=== PATIENT | male | born 2000 | race Caucasian/White ===

== ENCOUNTER 2020-10-18 22:16 | Observation (INO) | payer BC ==
[~2020-10-18] VITALS: Ht 182.9 cm; Wt 104.3 kg
[2020-10-18 22:34] LABS: BASOPHILS ABSOLUTE AUTO 0.07 K/mm3 (0.00-0.23); BASOPHILS PERCENT AUTO 1 % (0-2); EOSINOPHILS ABSOLUTE AUTO 0.15 K/mm3 (0.00-0.68); EOSINOPHILS PERCENT AUTO 2 % (0-6); Hematocrit 46.1 % (37.0-53.0); IMMATURE GRAN ABSOLUTE AUTO 0.03 K/mm3 (0.00-0.10); IMMATURE GRAN PERCENT AUTO 0 % (0-1); LYMPHOCYTES ABSOLUTE AUTO 2.67 K/mm3 (0.84-5.20); LYMPHOCYTES PERCENT AUTO 27 % (21-46); MONOCYTES PERCENT AUTO 7 % (4-13); Mean Corpuscular HGB 29.7 pg (26.0-34.0); Mean Corpuscular HGB Conc 34.7 g/dL (31.5-36.5); Mean Corpuscular Volume 86 fL (80-100); Mean Platelet Volume 11.1 fL (9.1-12.4); NEUTROPHILS PERCENT AUTO 63 % (41-73); Platelet Count 282 K/mm3 (150-400); RDW Coefficient Variation 12.5 % (11.7-14.2); RDW Standard Deviation 38.6 fL (35.1-46.3); Red Blood Cell Count 5.39 M/mm3 (4.30-5.90); White Blood Cell Count 9.82 K/mm3 (4.00-11.30)
[2020-10-18 22:50] LABS: Alanine Aminotransfer (ALT/SGP 25 U/L (12-78); Albumin, Blood 4.5 g/dL (3.4-5.0); Albumin/Globulin Ratio 1.3 (0.8-1.8); Alk Phos 75 U/L (50-136); Anion Gap 7 mmol/L (6-16); Aspartate Aminotrans (AST/SGOT 11 U/L (12-37); Bilirubin, Total 0.6 mg/dL (0.1-1.0); Blood Urea Nitrogen 10 mg/dL (8-24); Bun/Creatinine Ratio 11.2 (12.0-20.0); CO2, Blood 29 mmol/L (21-32); Calcium, Blood 9.8 mg/dL (8.5-10.1); Chloride, Blood 105 mmol/L (98-108); Creatinine, Blood 0.89 mg/dL (0.60-1.20); Ethanol (Alcohol), Blood, Med <3 mg/dL; Globulin, Blood 3.5 g/dL (2.2-4.0); Glomerular Filtration Rate >60 (60-); Glucose, Blood 109 mg/dL (70-99); Potassium, Blood 3.1 mmol/L (3.5-5.5); Sodium, Blood 141 mmol/L (136-145)
[2020-10-19 00:07] LABS: U Amphetamine Screen Not Detected; U Barbituate Screen Not Detected; U Benzodiazapine Screen Not Detected; U Cocaine Screen Not Detected; U Methadone Screen Not Detected; U Methamphetamine Screen Not Detected; U Opiates Screen Not Detected; U Phencyclidine Screen Not Detected
[2020-10-19 00:08] LABS: U Buprenorphine Screen Not Detected; U Cannabinoids Screen DETECTED; U Oxycodone Screen Not Detected; U Propoxyphene Screen Not Detected
[2020-10-19 01:44] LABS: Influenza A, PCR Negative (NEGATIVE); Influenza B, PCR Negative (NEGATIVE); Resp Syncytial Virus, PCR Negative (NEGATIVE); SARS-Cov-2 (COVID-19) PCR, MMC Negative (NEGATIVE)
--- NOTE | 2020-10-19 05:17 | NUR ---
SHIFT SUMMARY PT NEW ADMIT THIS AM. [id number]. NPO. PT REPORTING GENERALIZED DISCOMFORT WITH A HEADACHE SINCE TREATMENT IN HOSPITAL, DENIES PAIN MEDS. GENERALIZED ABRASIONS TO BUE + CHEST. DENIES N/T ALL EXTREMITIES. ABLE TO MOVE ALL EXTREMITIES EQUALLY. SPLINT TO RIGHT HAND/WRIST. PT CURRENTLY RESTING IN BED WITH GIRLFRIEND RESTING AT BEDSIDE, CALL LIGHT IN REACH.
--- NOTE | 2020-10-19 07:30 | NUR ---
ASSUMED CARE: PT RESTING QUIETLY AT THIS TIME. S.O. AT BEDSIDE. NO ACUTE NEEDS OR CONCERNS AT THIS TIME.
--- NOTE | 2020-10-19 16:30 | NUR ---
DR HOLDER CAME TO SEE PT AND AWARE THAT PHYSICAL THERAPY EVALUATED AND SPEECH EVALUATED AND THE ORTHO PA CAME AND TOOK PT'S SPLINT OFF AND RECOMMENDED FOLLOW UP OUTPT. AWAITING OT EVAL. CALL TO OT WHO SAID THEY WOULD PRIORITIZE PT FOR AM. PT AND S.O. STATED THEY WANT A BUS RIDE AT [address] HOLDER AWARE AND WILL PLAN TO DC PT IN AM.
--- NOTE | 2020-10-19 18:16 | NUR ---
SHIFT SUMMARY: DR HOLDER CAME TO SEE PT THIS EVENING AND MADE HIM AWARE OF PLAN TO DC TOMORROW WITH NEURO CHECKS T/O NIGHT AND OT TO EVALUATE IN AM. OT AWARE THAT PT IS PENDING DC. PT REQUESTS DC BEFORE 1115 IN ORDER TO MAKE BUS RIDE. DR HOLDER AWARE. MEDICATED TWICE FOR HEADACHE. NO FURTHER NEEDS OR CONCERNS.
--- NOTE | 2020-10-20 04:01 | NUR ---
SHIFT SUMMARY: NO SIGNIFICANT CHANGES THIS SHIFT. PT CONTINUES TO REPORT A THROBBING HEADACHE. PT GIVEN ICE PACK AND MEDICATED WITH ULTRAM PER EMAR WHICH WAS EFFECTIVE. DENIES ANY VISUAL CHANGES. DENIES N/V AND JAIMIE PO. INDEPENDENT IN ROOM WITH SIGNIFICANT OTHER AT BEDSIDE. PT AND S/O REPORT THAT INSTEAD OF TAKING THE BUS BACK HOME, THEY HAVE FRIENDS WHO ARE DRIVING TO THE HOSPITAL FROM [place], [place] TO TAKE THEM HOME AFTER DISCHARGE.
[2020-10-20] MEDS ORDERED: ACET325 PO (10:17)
[2020-10-20] MEDS ORDERED: TRAM50 PO (10:18)
--- NOTE | 2020-10-20 11:20 | NUR ---
DISCHARGE WORKED W/ OT & ST. SCRIPT GIVEN. DENIES BLURRY VISION, DOUBLE VISION, OR ANY CHANGES IN VISION. DENIES NUMT/TINGLING. STEADY GAIT. AMBULATED OUT BEING ESCORTED BY STAFF TO ENSURE SAFETY TO EXIT.
== END 2020-10-20 11:40 | disposition home or self-care (01) ==
LOC: ER 22:16 → SURS 22:17
PROVIDERS: Student in an Organized Health Care Education/Training Program; ADMIT Surgery
DX: S06.5X0A Traumatic subdural hemorrhage without loss of consciousness, initial encounter (principal); S62.306A Unspecified fracture of fifth metacarpal bone, right hand, initial encounter for closed fracture; F17.200 Nicotine dependence, unspecified, uncomplicated; V49.40XA Driver injured in collision with unspecified motor vehicles in traffic accident, initial encounter; Y93.89 Activity, other specified; Y92.410 Unspecified street and highway as the place of occurrence of the external cause; R40.2412 Glasgow coma scale score 13-15, at arrival to emergency department; Z23 Encounter for immunization
CPT/HCPCS: 0241U; 70450; 71260; 72125; 73110; 74177; 80053; 85025; 92507; 92523; 93005; 93010; 96374; 97110; 97162; 97165; 99285-25; A9270; G0008; G0378; G0480; J2270; J7030; Q2038; Q9967